=== PATIENT | female | born 1990 | race African-American/Black ===

== ENCOUNTER 2021-12-09 17:17 | Emergency (ER) | payer OTHER ==
[~2021-12-09] VITALS: Ht 162.6 cm; Wt 77.1 kg
[2021-12-09 17:33] VITALS: BP 104/78
[2021-12-09] MEDS ORDERED: IBUP600T27 PO (17:37)
[2021-12-09] MEDS ORDERED: CEPH500T PO (17:37)
== END 2021-12-09 18:39 | disposition home or self-care (01) ==
LOC: ER 17:17
DX: L03.011 Cellulitis of right finger (principal); F17.210 Nicotine dependence, cigarettes, uncomplicated; Z79.1 Long term (current) use of non-steroidal anti-inflammatories (NSAID); Z79.899 Other long term (current) drug therapy
CPT/HCPCS: 10060; 73120

== ENCOUNTER 2024-04-02 08:30 | Inpatient (IN) | payer MEDICAID, OTHER ==
[~2024-04-02] VITALS: Ht 162.6 cm; Wt 86.4 kg
[~2024-04-02 08:30] MED LIST: CEPH500T PO; IBUP-1454 PO
[2024-04-02 08:58] VITALS: PULSE 102; RESP 21; O2SAT 96
[2024-04-02] MEDS ORDERED: ONDANSETRON HCL 4 MG/2 ML VIAL IV ONE (09:00)
[2024-04-02] MEDS: SODIUM CHLORIDE 0.9% 1,000 ML IV ONE (09:20)
[2024-04-02] MEDS: ONDANSETRON HCL 4 MG/2 ML VIAL IV ONE (09:27)
[2024-04-02] MEDS: MORPHINE SULFATE 4 MG/ML SYR/VIAL IV ONE (09:27)
[2024-04-02 09:30] LABS: Hematocrit 43.6 % (36.0-46.0); Hemoglobin 14.6 g/dL (12.2-16.2); Mean Corpuscular Hemoglobin 30.1 pg (28.0-32.0); Mean Corpuscular Hgb Conc. 33.5 g/dL (32.0-36.0); Mean Corpuscular Volume 89.6 fL (80.0-100.0); Red Blood Cells 4.87 10^6/uL (4.0-5.20); Red Cell Distribution Width 13.9 % (11.8-14.3); White Blood Cell 10.7 10^3/uL (4.4-10.8)
[2024-04-02 09:37] LABS: Chloride 107 mmol/L (98-107); Potassium 3.8 mmol/L (3.5-5.1); Sodium 139 mmol/L (136-145)
[2024-04-02 09:38] LABS: Anion Gap 7 (5-15); Carbon Dioxide 25 mmol/L (20-30)
[2024-04-02 09:39] LABS: Calcium 9.4 mg/dL (8.5-10.1)
[2024-04-02 09:43] LABS: BUN/Creatinine Ratio 14.8 (10.0-20.0); Blood Urea Nitrogen 12 mg/dL (9-23); Glucose 103 mg/dL (74-106)
[2024-04-02 09:46] LABS: Band Neutrophils % (manual) 0; Basophils % (manual) 0 (0.0-2.0); Blast Cells 0; Eosinophils % (manual) 0 (0-7); Metamyelocytes % 0; Myelocytes % 0; Promyelocytes % 0; Reactive Lymphocytes 0
[2024-04-02 11:57] LABS: Urine Bacteria None Seen /hpf (None Seen)
[2024-04-02 12:15] LABS: Lymphocytes % (manual) 4 (10.0-50.0); Monocytes % (manual) 2 (0-12)
[2024-04-02 12:16] LABS: Platelet Estimate Adequate
[2024-04-02 12:20] LABS: Amphetamine Screen, Urine Neg (NEGATIVE); Barbiturate Scree,Urine Neg (NEGATIVE); Benzodiazephine Screen, Urine Neg (NEGATIVE); Cannabinoid Screen, Urine Pos (NEGATIVE); Cocaine Screen, Urine Pos (NEGATIVE); Opiate Scree,Urine Pos (NEGATIVE); Phencyclidine Screen, Urine Neg (NEGATIVE)
[2024-04-02 12:24] LABS: Urine Blood TRACE /uL (Negative); Urine Clarity Clear (Clear); Urine Color Light-Yellow (Yellow); Urine Mucus FEW (None Seen); Urine Protein, UAD Negative (Negative); Urine Specific Gravity 1.025 (1.001-1.035); Urine Urobilinogen Normal (Negative); Urine WBC 1 /hpf (0 - 5)
[2024-04-02] MEDS ORDERED: DOCUSATE SOD 100 MG CAP PO PRN (12:30)
[2024-04-02] MEDS: SODIUM CHLORIDE 0.9% 1,000 ML IV SCH (12:46)
[2024-04-02] MEDS ORDERED: NITROGLYCERIN 0.4 MG SL TAB SL PRN (13:45)
[2024-04-02] MEDS ORDERED: MORPHINE SULFATE INJ 2 MG/ml SYRG IV PRN (13:45)
[2024-04-02 15:54] VITALS: BP 100/58; PULSE 104; RESP 18
[2024-04-02 17:16] VITALS: BP 102/65; PULSE 97; RESP 20; TEMP 100.2; O2SAT 96
[2024-04-02] MEDS: MORPHINE SULFATE INJ 2 MG/ml SYRG IV PRN (17:19)
[2024-04-02 18:55] VITALS: TEMP 98.4
[2024-04-02 20:00] VITALS: PULSE 96; RESP 17; O2SAT 99
[2024-04-02 21:00] VITALS: BP 108/69; PULSE 96; RESP 17; O2SAT 99
[2024-04-02] MEDS: ACETAMINOPHEN 325 MG TAB PO PRN (23:36)
[2024-04-03 01:00] VITALS: BP 108/69; PULSE 87; RESP 18; TEMP 97.3; O2SAT 99
[2024-04-03 05:00] VITALS: BP 117/81; PULSE 101; RESP 16; TEMP 97.4; O2SAT 100
[2024-04-03] MEDS: ONDANSETRON HCL 4 MG/2 ML VIAL IV PRN (05:21)
[2024-04-03 05:57] LABS: Basophils # (auto) 0 10 ^3/uL (0-0.2); Basophils % (auto) 0.2 % (0.0-2.0); Eosinophils # (auto) 0 10 ^3/uL (0-0.8); Eosinophils % (auto) 0.5 % (0.0-7.0); Hematocrit 40.1 % (36.0-46.0); Hemoglobin 13.4 g/dL (12.2-16.2); Mean Corpuscular Hemoglobin 30.3 pg (28.0-32.0); Mean Corpuscular Hgb Conc. 33.5 g/dL (32.0-36.0); Mean Corpuscular Volume 90.2 fL (80.0-100.0); Monocytes # (auto) 0.6 10 ^3/uL (0-1.3); Monocytes % (auto) 10.3 % (0.0-12.0); Neutrophils # (auto) 3.8 10 ^3/uL (1.6-8.6); Nucleated Red Blood Cells % 0.1 %; Red Blood Cells 4.44 10^6/uL (4.0-5.20); Red Cell Distribution Width 14.1 % (11.8-14.3); White Blood Cell 5.4 10^3/uL (4.4-10.8)
[2024-04-03 06:22] LABS: Alanine Aminotransferase 28 U/L (7-40); Albumin 3.6 g/dL (3.2-4.8); Alkaline Phosphatase 48 U/L (46-116); Anion Gap 7 (5-15); Aspartate Aminotransferase 17 U/L (13-40); BUN/Creatinine Ratio 10.4 (10.0-20.0); Blood Urea Nitrogen 7 mg/dL (9-23); Calcium 8.1 mg/dL (8.7-10.4); Carbon Dioxide 23 mmol/L (20-30); Chloride 110 mmol/L (98-107); Glucose 93 mg/dL (74-106); Potassium 3.1 mmol/L (3.5-5.1); Sodium 140 mmol/L (136-145)
[2024-04-03 06:23] LABS: Bilirubin, Total 0.6 mg/dL (0.2-1.0)
[2024-04-03 07:03] LABS: Total Protein 5.6 g/dL (5.7-8.2)
[2024-04-03 08:35] VITALS: BP 115/65; PULSE 68; RESP 16; TEMP 98.6; O2SAT 100
[2024-04-03 12:32] VITALS: BP 102/68; PULSE 81; RESP 16; TEMP 98; O2SAT 99
[2024-04-03] MEDS: POTASSIUM CHL 20 Meq TABLET PO ONE (13:44)
[2024-04-03 16:46] VITALS: BP 92/59; PULSE 73; RESP 16; TEMP 98.2; O2SAT 100
[2024-04-03 21:00] VITALS: BP 96/67; PULSE 84; RESP 20; TEMP 99.1; O2SAT 100
[2024-04-04] VITALS (7 sets, daily range): BP systolic 92–115; BP diastolic 54–90; PULSE 61–98; RESP 16–20; TEMP 97.3–98.7; O2SAT 96–100
[2024-04-04] MEDS: ENSURE CLEAR Mixed Berry 8oz Carton PO SCH (09:25)
[2024-04-04] MEDS ORDERED: PANT40TA2 PO (12:23)
[2024-04-04] MEDS ORDERED: ZOFR4T PO (12:23)
[2024-04-04] MEDS: POTASSIUM CHL 20 Meq TABLET PO ONE (20:06)
[2024-04-05 01:00] VITALS: BP 104/71; PULSE 71; RESP 18; TEMP 98; O2SAT 100
[2024-04-05 05:00] VITALS: BP 99/70; PULSE 73; RESP 18; TEMP 98; O2SAT 100
[2024-04-05 08:00] VITALS: PULSE 75; RESP 16; O2SAT 99
[2024-04-05 08:56] VITALS: BP 89/47; PULSE 75; RESP 16; TEMP 98.1; O2SAT 99
[2024-04-05 12:53] VITALS: BP 122/61; PULSE 73; RESP 16; TEMP 98.3; O2SAT 97
[2024-04-05 13:00] VITALS: BP 122/61; PULSE 75; RESP 16; TEMP 98.3; O2SAT 97
== END 2024-04-05 15:15 | disposition home or self-care (01) | DRG 249 ==
LOC: ER 08:30 → OVERFLOW 13:37 → CENTRAL 16:22
PROVIDERS: ADMIT Nurse Practitioner Family; ATTEND Internal Medicine
DX: A05.9 Bacterial foodborne intoxication, unspecified (principal); E87.6 Hypokalemia; F12.10 Cannabis abuse, uncomplicated; F17.210 Nicotine dependence, cigarettes, uncomplicated; Z79.899 Other long term (current) drug therapy
CPT/HCPCS: 36415; 74176; 76856; 80048; 80053; 80307; 81001; 84702; 85007; 85025; 85027; 96361; 96374; 96375; G0378; J2405